=== PATIENT | male | born 2005 | race African-American/Black ===

== ENCOUNTER → 2024-09-30 | Outpatient (CLI) | payer MEDICAID, SELFPAY ==
--- NOTE | 2024-09-30 15:00 | XR_ITS ---
Examination: MRI of brain without intravenous contrast. MRI brain with intravenous contrast. Date and time of exam:September 30, 2024 1530 hours INDICATIONS: Intermittent hearing loss 2 years, diagnosis pediatric cerebral cysts Technique: Multiple axial and sagittal images of the brain to been obtained. Siemens high-resolution 1.52 Kimmy short bore scanner utilized. Sagittal sections, T1 weighted images, TR 500, TE 14, are performed. Axial sections proton-density and T2-weighted images have been obtained. Inversion recovery axial images, TR 9260, TE 111, TR 2500. Diffusion weighted images, axial sections, TR 4800, TE 128, B value 1000. Axial sections, ADC map, TR 4800, TE 128. Axial and coronal images were also obtained post 16 cc gadolinium administered intravenously. Findings:: Enlargement of the sella turcica is not present. The optic chiasm and infundibular stalk are not remarkable. There is no localized enlargement of the medulla or jong. Fourth ventricle and cerebellar tonsils appear normal in position. No subacute area of hemorrhage density is seen. Fourth ventricle is midline. Mass in the cerebellopontine angle region is not evident. 7th and 8th nerve complexes exhibit symmetry Globes are symmetrical Orbital musculature including medial lateral rectus muscles do not exhibit abnormality Increased white matter signal is not seen Chronic frontal ethmoid maxillary antral sinusitis Effacement of the cortical sulcal markings is not identified. Mass effect upon the ventricular system is not identified. Diffusion-weighted images demonstrate no focus of restricted diffusion Contrast images demonstrate no abnormal enhancing lesions Impression: Negative for acute hemorrhage mass effect or midline shift No acute infarct No lumbar findings diagnostic for demyelinating disease No abnormal enhancing cerebellar or cerebral lesions, negative for enhancing acoustic neurinoma
== END | disposition home or self-care (01) ==
LOC: SMRI 14:51
PROVIDERS: PCP Family Medicine; Referring Provider Internal Medicine; Visit Provider Internal Medicine
DX: G93.0 Cerebral cysts (principal)
CPT/HCPCS: 70553; A9579

== ENCOUNTER 2025-10-05 11:43 | Emergency (ER) | payer MEDICAID, SELFPAY ==
[2025-10-05 11:43] VITALS: BMI 30.7
[2025-10-05 12:22] VITALS: BP 132/71; PULSE 116; RESP 20; TEMP 38.6; O2SAT 96; BMI 30.7
[2025-10-05] MEDS: IBUPROFEN TAB 400 MG TABLET 800 MG PO (12:51)
--- NOTE | 2025-10-05 12:52 | PD.EDURI ---
Upper Respiratory Inf. RME/HPI General Chief Complaint: Flu Like Symptoms Stated Complaint: COUGH,NEAR SYNCOPE AND PHLEGM Time Seen by Provider: 10/05/25 11:45 Arrival date/time: 10/05/25 11:43 20-year-old male presents to the Emergency Department for complaint of cough, congestion runny nose generalized bodyaches and fever ongoing for last couple of days Limitations: no limitations Related Data Previous Rx's ?Medication ?Instructions ?Recorded albuterol sulfate 90 mcg/actuation 1 - 2 puff inhalation Q6HR PRN 08/31/17 aerosol inhaler (ProAir HFA) WHEEZING #1 inh diphenhydramine HCl 25 mg capsule 25 mg PO Q8H PRN allergic symptoms 03/29/20 (Benadryl) #30 caps doxycycline hyclate 100 mg tablet 100 mg PO BID #14 tabs 03/29/20 ibuprofen 600 mg tablet 600 mg PO Q6H #30 tabs 03/29/20 pantoprazole 40 mg tablet,delayed 40 mg PO QDAY #14 tabs 11/05/22 release (Protonix) ibuprofen 600 mg tablet 600 mg PO Q8H PRN fever or pain 12/06/23 #20 tabs ondansetron 4 mg disintegrating 4 mg PO Q8H PRN nausea and 12/06/23 tablet vomiting #14 tabs benzonatate 100 mg capsule 100 mg PO TID #14 caps 10/05/25 ibuprofen 800 mg tablet 800 mg PO TID PRN pain #30 tabs 10/05/25 Allergies Allergy/AdvReac Type Severity Reaction Status Date / Time No Known Allergies Allergy Verified 12/21/23 04:19 Review of Systems Review of Systems Systems Reviewed: All systems reviewed, normal except as documented Constitutional Constitutional: Reports system reviewed and no additional complaints, except as documented, Denies fever(s) and Denies headache(s) Eyes Eyes: Reports system reviewed and no additional complaints, except as documented and Denies blurry vision ENT Ears, Nose, Mouth, and Throat: Reports system reviewed and no additional complaints, except as documented, Denies headache(s), Denies nasal congestion and Denies nasal discharge Cardiovascular Cardiovascular: Reports system reviewed and no additional complaints, except as documented, Denies chest pain and Denies dyspnea Respiratory Respiratory: Reports system reviewed and no additional complaints, except as documented, Reports chest congestion, Reports cough and Denies dyspnea Gastrointestinal Gastrointestinal: Reports system reviewed and no additional complaints, except as documented and Denies abdominal pain Integumentary/Breasts Skin/Breast: Reports system reviewed and no additional complaints, except as documented and Denies rash Neurologic Neurologic: Reports system reviewed and no additional complaints, except as documented, Reports as per HPI and Denies headache(s) Past Medical History Past Medical History CARDIAC: Negative Congestive Heart Failure RESPIRATORY: Negative Chronic Obstructive Pulmonary Disease (COPD) GENITOURINARY: Negative Renal Disease ENDOCRINE: Negative Diabetes Mellitus Type 1 or Diabetes Mellitus Type 2 Social History SMOKING STATUS: Never smoker ED Exam General Limitations: Present no limitations General appearance: Present alert and in no apparent distress Head Head exam: Present atraumatic, normocephalic and normal inspection Eye Eye exam: Present normal appearance, PERRL and EOMI; Absent conjunctival injection ENT ENT exam: Present normal exam, normal oropharynx and mucous membranes moist Neck Neck exam: Present normal inspection, full ROM and trachea midline Chest Chest inspection: Present normal inspection and symmetric chest wall rise Respiratory Respiratory exam: Present normal lung sounds bilaterally; Absent respiratory distress, wheezes, stridor, accessory muscle use or prolonged expiratory phase Cardiovascular Cardiovascular exam: Present regular rate, normal rhythm and normal heart sounds Abdominal Exam Abdominal exam: Present soft and normal bowel sounds; Absent distention, tenderness, guarding, rebound or rigidity Extremities Exam Extremities exam: Present normal inspection and full ROM Back Exam Back exam: Present normal inspection and full ROM Neurological Exam Neurological exam: Present alert, oriented X3 and CN II-XII intact Psychiatric Psychiatric exam: Present normal affect and normal mood Skin Skin exam: Present warm, dry, intact and normal color Course Quality Measures none Orders Category Date Time Status Bedside Influenza A&B Antigen Test NOW Care 10/05/25 12:27 Completed Ibuprofen Tab [Motrin Tab] Med 10/05/25 12:27 Discontinued 800 mg PO X1 ONE Vital Signs Vital signs: Vital Signs Temperature 101.5 F H 10/05/25 12:22 Pulse Rate 116 H 10/05/25 12:22 Respiratory Rate 20 10/05/25 12:22 Blood Pressure 132/71 H 10/05/25 12:22 Pulse Oximetry (%) 96 10/05/25 12:22 Oxygen Delivery Method Room Air 10/05/25 12:22 O2 saturation 96% on room air with normal limits Upper Respiratory Infection MDM Narrative MDM Narrative:: 20-year-old male presents to the Emergency Department for complaint of cough, congestion runny nose generalized bodyaches and fever ongoing for last couple of days Despite patient having fever patient does not appear ill or toxic no acute stress Patient checked for flu which came back positive as suspected Patient will be treated symptomatically Patient reports no chest pain or shortness of breath Patient discharged home in no distress to follow-up with primary care doctor in the next 24 to 48 hours and for any worsening symptoms to return to the ER immediately Patient data External records reviewed:: [facility] previous records Clinical information provided by:: patient Social determinants that could affect healthcare access:: none Patient has the following chronic illnesses:: None How is presenting disease/condition affected by chronic disease/condition?: no chronic disease Evaluation data The following diagnostics were reviewed and interpreted by me:: lab results Lab and/or radiology exams considered but not ordered:: Lab obtained Interpretation Summary: By me Medications / Prescriptions Medications or Prescriptions considered but not ordered:: Given Medication administrations:: Medication Administration History Discontinued Medications Ibuprofen (Ibuprofen Tab 400 Mg Tablet) 800 mg PO X1 ONE Stop: 10/05/25 12:28 Last Admin: 10/05/25 12:51 Dose: 800 mg Documented By: Given Consultations Consultation(s) initiated? (list below): No Diagnosis Upper Respiratory Differential Diagnosis: upper respiratory infection, sinusitis, viral infection, bronchitis and influenza Most likely diagnosis given after review of the tests above:: URI Admission Indicated Admission indicated?: not indicated Admission Request Was there a request for admission?: No Disposition Plan Disposition Plan: Discharge Discharge Attestation Discharge Attestation: The patient and all family members were given an opportunity to ask questions and understood the discharge instructions. Discharge instructions specifically effects, indications for sooner follow up or return to the emergency department, and the expected course of current diagnosis. Patient condition: Stable Discharge Plan Plan Patient Disposition: HOME (Self Care) Discharge Disposition comment: Stable Prescriptions/Referrals Prescriptions/Med Rec: New ibuprofen 800 mg tablet 800 mg PO TID PRN (Reason: pain) Qty: 30 0RF benzonatate 100 mg capsule 100 mg PO TID Qty: 14 0RF No Action albuterol sulfate [ProAir HFA] 8.5 GM HFA aerosol inhaler 1 - 2 puff Inhalation Q6HR PRN (Reason: WHEEZING) Qty: 1 0RF Rx Instructions: Please give and use spacer diphenhydramine HCl [Benadryl] 25 mg capsule 25 mg PO Q8H PRN (Reason: allergic symptoms) Qty: 30 0RF ibuprofen 600 mg tablet 600 mg PO Q6H Qty: 30 0RF doxycycline hyclate 100 mg tablet 100 mg PO BID Qty: 14 0RF ibuprofen 600 mg tablet 600 mg PO Q8H PRN (Reason: fever or pain) Qty: 20 0RF ondansetron 4 mg tablet,disintegrating 4 mg PO Q8H PRN (Reason: nausea and vomiting) Qty: 14 0RF pantoprazole [Protonix] 40 mg tablet,delayed release (DR/EC) 40 mg PO QDAY Qty: 14 0RF Referrals: Bautista Donovan MD [Primary Care Provider, Family Practice] - In 1 week Problem List Clinical Impression: Influenza A Patient/Caregiver Discharge Instructions Education Materials: ED Influenza (Adult) Additional Instructions: Please follow up with your primary care doctor in the next 24-48hrs for any worsening symptoms return here immediately Print Language: Niuean Stand Alone Forms: Rakel Award Info., Work/School Release, Patient Portal Info Letter PA/TAX ASSISTANT Supervising Physician PA/TAX ASSISTANT Supervising Physician: Dr. Mullen
[2025-10-05 13:51] VITALS: BP 134/80; PULSE 88; RESP 19; TEMP 37.8; O2SAT 98
== END 2025-10-05 13:53 | disposition home or self-care (01) ==
PROVIDERS: Emergency Provider Emergency Medicine; PCP Family Medicine
DX: J10.1 Influenza due to other identified influenza virus with other respiratory manifestations (principal)
CPT/HCPCS: 87502; 99282; A9270